=== PATIENT | male | born 1955 | race Caucasian/White ===

== ENCOUNTER → 2020-02-04 | Day surgery (SDC) | payer MEDICARE, OTHER ==
[~2020-02-04] MED LIST: Propofol 200 MG/20 ML SDV IV ONE; fentaNYL 100 MCG/2 ML SDV IV ONE
[2020-02-04] MEDS: Lactated Ringers 1,000 ML IV SCH (10:02)
--- NOTE | 2020-02-04 15:48 | OR ---
DATE OF OPERATION: PREOPERATIVE DIAGNOSIS: 1. CHRONIC GASTROESOPHAGEAL REFLUX DISEASE. 2. ALTERED BOWEL HABITS. POSTOPERATIVE DIAGNOSIS: 1. CHRONIC GASTROESOPHAGEAL REFLUX DISEASE. 2. ALTERED BOWEL HABITS. SURGEON: Min Medrano MD PROCEDURE: 1. DIAGNOSTIC ESOPHAGOGASTRODUODENOSCOPY WITH BIOPSIES X3, PATRICIA. 2. FULL-LENGTH COLONOSCOPY. ANESTHESIA: MAC. COMPLICATIONS: None. SPECIMEN: 1. Antral biopsy x2. 2. Antral PATRICIA. 3. Distal esophageal biopsy x1. FINDINGS: 1. Full-length EGD. 2. Mild and chronic antral gastritis without erosion or ulceration. 3. Spontaneous GERD with possible short-segment Rosen's changes focally. 4. Normal full-length colonoscopy. RECOMMENDATIONS: The patient should have aggressive medical therapy for his reflux. Recommend a followup EGD in 1 to 2 years pending path reports. Routine colonoscopy every 10 years. INDICATIONS: The patient has been having ongoing issues with dyspepsia and reflux. He has been having some altered bowel habits. Dr. Rodriguez sent him for a diagnostic upper and lower endoscopy. DESCRIPTION OF PROCEDURE: The patient was prepped and draped, placed in the left lateral decubitus position. A lubricated Olympus gastroscope was inserted over a bit, advanced to cricopharyngeus area and easily intubated in the esophagus. The esophageal lining was benign in its entire course. The Z-line was crisp at 39 cm. There was spontaneous reflux seen. No hiatal hernia. There was no distal esophagitis, stricturing, ulceration. There was one area that appeared to be possible short-segment Rosen's change, and I did do a biopsy of that. The scope was then advanced through the stomach and pylorus into the second portion of the duodenum. This and the duodenal bulb were benign. The scope was brought back into the stomach and retroflexed. The upper fundus and cardia were completely benign. Upon straightening, the rest of the fundus was unremarkable. The patient does have diffuse gastritis of the antrum, appears to be mild and chronic. We did do 2 biopsies and a CLOtest. Air was then suctioned and the scope removed without complication. A lubricated Olympus colonoscope was then inserted and easily advanced to the cecum. Direct visualization of the ileocecal valve and appendiceal orifice was accomplished. The bowel prep was adequate. The patient had stool throughout, but easily suctioned in all places. Upon withdrawal, throughout the right transverse and descending colon, no abnormalities were seen. Left colon had no signs of any other polyps, mass, ulceration, bleeding sites. No vascular abnormalities or signs of colitis. The rectal vault was unremarkable. Retroflexion of the scope in the rectum showed no anal lesions. Air was suctioned and the scope was removed without complication. TRUDY/ABAD /[id number]
== END ==
LOC: CC.SDS 09:38
PROVIDERS: ATTEND Family Medicine
DX: K29.50 Unspecified chronic gastritis without bleeding (principal); K21.0 Gastro-esophageal reflux disease with esophagitis; J44.9 Chronic obstructive pulmonary disease, unspecified; I10 Essential (primary) hypertension; E78.5 Hyperlipidemia, unspecified; E66.9 Obesity, unspecified; E83.42 Hypomagnesemia; G47.33 Obstructive sleep apnea (adult) (pediatric); N40.0 Benign prostatic hyperplasia without lower urinary tract symptoms; Z87.891 Personal history of nicotine dependence; M19.90 Unspecified osteoarthritis, unspecified site; Z79.82 Long term (current) use of aspirin; Z88.8 Allergy status to other drugs, medicaments and biological substances; Z88.6 Allergy status to analgesic agent; Z91.040 Latex allergy status; Z91.013 Allergy to seafood; Z79.899 Other long term (current) drug therapy; Z68.28 Body mass index [BMI] 28.0-28.9, adult; Z79.84 Long term (current) use of oral hypoglycemic drugs
CPT/HCPCS: 00813; 43239; 87081; 88305; G0121; J2704; J3010; J7120